=== PATIENT | female | born 1965 | race Native Hawaiian/Other Pacific Islander ===

== ENCOUNTER 2019-08-26 11:42 | Outpatient (CLI) | payer OTHER ==
[~2019-08-26 11:42] MED LIST: ACET7.5T70 PO; CYCL10TA35 PO; GABA100C2 PO; MEDROL DOSEPAK4 MG OR
== END 2019-08-26 19:55 | disposition home or self-care (01) ==
LOC: MAMMO 11:42
DX: Z12.31 Encounter for screening mammogram for malignant neoplasm of breast (principal)

== ENCOUNTER 2022-07-17 09:48 | Outpatient (CLI) | payer OTHER | END 2022-07-17 19:10 | disposition home or self-care (01) | LOC: RAD 09:48 | PROVIDERS: ATTEND Internal Medicine | DX: Z02.71 Encounter for disability determination (principal) ==

== ENCOUNTER 2023-07-17 09:28 | Outpatient (CLI) | payer OTHER | END 2023-07-17 19:09 | disposition home or self-care (01) | LOC: MAMMO 09:28 | PROVIDERS: ATTEND Internal Medicine | DX: R92.2 Inconclusive mammogram (principal) | CPT/HCPCS: G0279 ==